=== PATIENT | male | born 1950 | race Caucasian/White ===

== ENCOUNTER 2019-11-11 19:16 | Inpatient (IN) | payer MEDICARE, OTHER ==
[2019-11-11 21:38] VITALS: BMI 27.9
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
[2019-11-11] MEDS ORDERED: Nitroglycerin 0.4 MG TAB (25 Tab Bottle) PO PRN (23:56)
[2019-11-12 01:06] LABS: Troponin I Less than 0.010 ng/mL (< 0.028)
--- NOTE | 2019-11-12 04:06 | PDOC.EVN ---
Event Note - Event Note Event Note: Was notified by nursing that patient had a run of V. tach. Patient was asymptomatic and sleeping during the event. Vital signs stable. Due to patient 's history of sudden cardiac arrest with FL in the past and symptoms feeling the same as they were prior to that event, stress test has been canceled until evaluated by cardiology.
[2019-11-12 04:56] LABS: Cardiac Risk 2.6 (Less than 4.5)
[2019-11-12 04:59] LABS: Troponin I Less than 0.010 ng/mL (< 0.028)
[2019-11-12] MEDS: Famotidine 20 MG TAB PO SCH ×2 (08:41→21:07)
[2019-11-12] MEDS: Rosuvastatin 20 MG TAB PO SCH (08:41)
[2019-11-12] MEDS: Aspirin 81 mg Enteric Coated Tablet PO SCH (08:41)
[2019-11-12] MEDS: Clopidogrel Bisulfate 75 MG TAB PO SCH (08:41)
[2019-11-12] MEDS: Carvedilol 6.25 MG TAB PO SCH ×2 (08:42→21:12)
[2019-11-12 12:30] LABS: SARS-CoV-2 MS2 Positive; SARS-CoV-2 N Gene Negative; SARS-CoV-2 S Gene Negative; SARS-CoV-2 by NAA Not Detected (NotDetected); SARS-CoV-2 orf1ab Negative
[2019-11-12] MEDS ORDERED: Communication Order-Pharmacy FS SCH (13:30)
[2019-11-12] MEDS ORDERED: Sodium Chloride 0.9% 1,000 ML IV SCH (13:30)
--- NOTE | 2019-11-12 13:41 | PDOC.HOSPP ---
- Subjective Encounter Date: 11/12/19 Encounter Time: 10:30 Subjective: pt up in bed no complains - Objective Vital Signs & Weight: Vital Signs (12 hours) Temp Pulse Resp BP Pulse Ox 11/12/19 11:03 98.1 F 57 L 17 128/71 95 11/12/19 07:41 98.6 F 58 L 18 133/63 93 L 11/12/19 04:02 97.9 F 54 L 14 124/60 95 Weight Admit Weight 200 lb 6.4 oz Weight 200 lb 6.4 oz I&O: 11/11/19 11/12/19 11/13/19 06:59 06:59 06:59 Intake Total 120 Balance 120 Hospitalist ROS - Review of Systems Cardiovascular: denies: chest pain, palpitations, orthopnea, paroxysmal noc. dyspnea, edema, light headedness, other Gastrointestinal: denies: nausea, vomiting, abdominal pain, diarrhea, constipation, melena, hematochezia, other Genitourinary: denies: dysuria, frequency, incontinence, hematuria, retention, other - Medication Medications: Active Medications Generic Name Dose Route Start Last Admin Trade Name Freq PRN Reason Stop Dose Admin Aspirin 81 mg 11/12/19 09:00 11/12/19 08:41 Ecotrin PO 81 mg DAILY [facility] Administration Carvedilol 6.25 mg 11/12/19 09:00 11/12/19 08:42 Coreg PO Not Given BID [facility] Clopidogrel Bisulfate 75 mg 11/12/19 09:00 11/12/19 08:41 Plavix PO 75 mg DAILY [facility] Administration Famotidine 40 mg 11/12/19 09:00 11/12/19 08:41 Pepcid PO 40 mg BID [facility] Administration Rosuvastatin Calcium 40 mg 11/12/19 09:00 11/12/19 08:41 Crestor PO 40 mg DAILY [facility] Administration - Exam Neck: negative: supple, symmetric, no JVD, no thyromegaly, no lymphadenopathy, no carotid bruit, JVD Heart: negative: RRR, no murmur, no gallops, no rubs, normal peripheral pulses, irregular, diminshed peripheral pulses, murmur present, II/IV, III/IV Respiratory: negative: CTAB, no wheezes, no rales, no ronchi, normal chest expansion, no tachypnea, normal percussion, rales, rhonchi, tachypneic, wheezes Hosp A/P (1) V tach Code(s): I47.2 - VENTRICULAR TACHYCARDIA Status: Acute (2) Chest pain Code(s): R07.9 - CHEST PAIN, UNSPECIFIED Status: Acute (3) HTN (hypertension) Code(s): I10 - ESSENTIAL (PRIMARY) HYPERTENSION Status: Acute (4) Hyperlipidemia Code(s): E78.5 - HYPERLIPIDEMIA, UNSPECIFIED Status: Acute (5) CAD (coronary artery disease) Code(s): I25.10 - ATHSCL HEART DISEASE OF [place] CORONARY ARTERY W/O ANG PCTRS Status: Acute (6) CKD (chronic kidney disease) stage 3, GFR 30-59 ml/min Code(s): N18.3 - CHRONIC KIDNEY DISEASE, STAGE 3 (MODERATE) Status: Acute - Plan pt had 25 beats of vtach last night. cardilogy consulted. pt was asymptomatic. He has not had a cath since 2016. 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 pt on fluids since he will be getting a cath.
[2019-11-12] MEDS: Sodium Chloride 0.9% 1,000 ML IV SCH (15:15)
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
[2019-11-12] MEDS ORDERED: Enoxaparin Sodium 80 MG/0.8 ML SYRINGE SC SCH (18:45)
[2019-11-13] MEDS: Sodium Chloride 0.9% 1,000 ML IV SCH ×2 (03:23→18:18)
[2019-11-13 05:10] LABS: Anion Gap 11 mmol/L (10-20); BUN (Urea Nitrogen) 15 mg/dL (8.4-25.7); Calc. Creatinine Clearance 61 mL/min (70-130); Calcium 8.2 mg/dL (7.8-10.44); Carbon Dioxide 23 mmol/L (23-31); Chloride 106 mmol/L (98-107); Estimated GFR-MDRD 47; Glucose 81 mg/dL (80-115); Potassium 3.7 mmol/L (3.5-5.1); Sodium 136 mmol/L (136-145)
[2019-11-13] MEDS: Famotidine 20 MG TAB PO SCH ×2 (05:57→20:32)
[2019-11-13] MEDS: Clopidogrel Bisulfate 75 MG TAB PO SCH (05:57)
[2019-11-13] MEDS: Rosuvastatin 20 MG TAB PO SCH (05:57)
[2019-11-13] MEDS: Carvedilol 6.25 MG TAB PO SCH ×2 (05:58→20:32)
[2019-11-13] MEDS: Aspirin 81 mg Enteric Coated Tablet PO SCH (05:58)
[2019-11-13] MEDS ORDERED: Diazepam 5 MG TAB PO SCH (06:00)
[2019-11-13] MEDS ORDERED: Sodium Chloride 0.9% 1,000 ML IV SCH (06:00)
[2019-11-13] MEDS ORDERED: Midazolam HCl 2 mg/2 ml Vial ONE (07:58)
[2019-11-13] MEDS ORDERED: Fentanyl 100 MCG/2 ML VIAL ONE ×2 (07:59→09:35)
[2019-11-13] MEDS ORDERED: Heparin 10,000 UNITS/ 10 ML VIAL ONE ×2 (08:28→08:35)
[2019-11-13] MEDS ORDERED: Nitroglycerin 100MG/250ML BOT 250 ML ONE (08:36)
[2019-11-13] MEDS ORDERED: Clopidogrel Bisulfate 300 MG TAB ONE (09:54)
[2019-11-13] MEDS ORDERED: Iopamidol 370 76% 50 ML VIAL FS ONE (10:56)
[2019-11-13] MEDS ORDERED: Iopamidol 370 76% 100 ML VIAL ONE (10:56)
--- NOTE | 2019-11-13 18:55 | PDOC.HOSPP ---
- Subjective Encounter Date: 11/13/19 Encounter Time: 18:00 Subjective: pt up in bed no complains - Objective Vital Signs & Weight: Vital Signs (12 hours) Temp Pulse Resp BP BP Pulse Ox 11/13/19 16:20 97.7 F 56 L 16 131/63 97 11/13/19 14:00 62 18 134/96 H 98 11/13/19 07:24 97.9 F 65 20 127/65 95 Weight Admit Weight 200 lb 6.4 oz Weight 200 lb 6.4 oz I&O: 11/12/19 11/13/19 11/14/19 06:59 06:59 06:59 Intake Total 120 1686 2213 Output Total 325 450 Balance 120 1361 1763 Result Diagrams: 11/13/19 04:22 Hospitalist ROS - Review of Systems Cardiovascular: denies: chest pain, palpitations, orthopnea, paroxysmal noc. dyspnea, edema, light headedness, other Gastrointestinal: denies: nausea, vomiting, abdominal pain, diarrhea, constipation, melena, hematochezia, other Genitourinary: denies: dysuria, frequency, incontinence, hematuria, retention, other - Medication Medications: Active Medications Generic Name Dose Route Start Last Admin Trade Name Freq PRN Reason Stop Dose Admin Aspirin 81 mg 11/12/19 09:00 11/13/19 05:58 Ecotrin PO 81 mg DAILY [facility] Administration Carvedilol 6.25 mg 11/12/19 09:00 11/13/19 05:58 Coreg PO Not Given BID [facility] Clopidogrel Bisulfate 75 mg 11/12/19 09:00 11/13/19 05:57 Plavix PO 75 mg DAILY [facility] Administration Diazepam 5 mg 11/13/19 06:00 11/13/19 07:32 Valium PO 11/13/19 23:59 5 mg WILLCALL [facility] Administration Famotidine 40 mg 11/12/19 09:00 11/13/19 05:57 Pepcid PO 40 mg BID [facility] Administration Sodium Chloride 1,000 mls @ 80 mls/hr 11/12/19 15:00 11/13/19 18:18 Normal Saline 0.9% IV 11/13/19 21:00 Not Given .[id number] [facility] Rosuvastatin Calcium 40 mg 11/12/19 09:00 11/13/19 05:57 Crestor PO 40 mg DAILY [facility] Administration Sodium Chloride 10 ml 11/12/19 21:00 11/13/19 05:58 Flush - Normal Saline IVF Not Given Q12HR [facility] - Exam Heart: negative: RRR, no murmur, no gallops, no rubs, normal peripheral pulses, irregular, diminshed peripheral pulses, murmur present, II/IV, III/IV Respiratory: negative: CTAB, no wheezes, no rales, no ronchi, normal chest expansion, no tachypnea, normal percussion, rales, rhonchi, tachypneic, wheezes Gastrointestinal: negative: soft, non-tender, non-distended, normal bowel sounds , no palpable masses, no hepatomegaly, no splenomegaly, no bruit, no guarding, no rigidity, tender to palpation, distended, diminished bowl sounds, voluntary guarding Extremities: negative: no cyanosis, no clubbing, no edema, 1+ LE edema, 2+ LE edema, clubbing Extremities - other findings: right groin dressing intact, pedal pulse present to right and left foot. Hosp A/P (1) V tach Code(s): I47.2 - VENTRICULAR TACHYCARDIA Status: Acute (2) Chest pain Code(s): R07.9 - CHEST PAIN, UNSPECIFIED Status: Acute (3) HTN (hypertension) Code(s): I10 - ESSENTIAL (PRIMARY) HYPERTENSION Status: Acute (4) Hyperlipidemia Code(s): E78.5 - HYPERLIPIDEMIA, UNSPECIFIED Status: Acute (5) CAD (coronary artery disease) Code(s): I25.10 - ATHSCL HEART DISEASE OF [place] CORONARY ARTERY W/O ANG PCTRS Status: Acute (6) CKD (chronic kidney disease) stage 3, GFR 30-59 ml/min Code(s): N18.3 - CHRONIC KIDNEY DISEASE, STAGE 3 (MODERATE) Status: Acute - Plan pt had 25 beats of vtach last night. cardilogy consulted. pt was asymptomatic. He has not had a cath since 2016. 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 pt on fluids since he will be getting a cath. 11/12 pt s/p cath had angioplasty. will continue to monitor overnight if stable will discharge in am.
--- NOTE | 2019-11-13 20:31 | CCLSPC ---
PROCEDURES: 1. Left heart catheterization. 2. Percutaneous transluminal coronary angioplasty of the right coronary artery. 3. Attempted stent of the right coronary artery, stent unable to cross lesion due to vessel tortuosity. INDICATIONS: Chest pain at rest, coronary artery disease. COMPLICATIONS: None. PROCEDURE IN DETAIL: The patient was brought to the cardiac catheterization lab in a fasting state. He was sedated, prepped and draped in usual fashion. The right groin was anesthetized with 1% Xylocaine. Subsequently, a 5-Turkmen introducer sheath was placed on the first attempt under ultrasound guidance. Coronary angiography was done with a Medardo left 4 catheter and the right coronary artery was visualized with a WRP catheter. Films are reviewed, revealed the following. 1. Left main normal. 2. LAD, 30% plaque after the first diagonal branch. 3. Diagonal branch 30%. 4. Circumflex, stent widely patent with good flow. However, distally in the mid circumflex, there was 100% occlusion, which was an old occlusion with some collateral flow, some aneurysmal dilatation in part of the vessel. 5. Right coronary artery is a tortuous vessel with a 90-degree angle bend in the proximal segment. There is a stent with a 90% in-stent restenosis. More distally, there is a 40% lesion. The vessel diameter distally is large. The patient was given 12,000 of heparin intravenously and the 5-Turkmen sheath was exchanged for the 6-Turkmen sheath. It should be noted exchange length catheters were used for most of the exchanges as there was some coiling of the wire in the aorta suggestive of an abdominal aneurysm, which will be evaluated at a later time. We placed an FR 3.5 guide catheter, which cannulated well. The lesion was crossed easily with a Luge wire. The area was pre-dilated with a 2.5 x 20 balloon. There was a long diseased segment, but this was a critical area and this was balloon dilated. Subsequently, that was withdrawn and a 4.0 x 28 mm stent was placed, but would not traverse the initial bend. Multiple maneuvers were tried to get the stent to cross, initially started with a Luge wire which was an intermediate wire, used an extra-support wire as a katia wire that was not successful in getting the stent to cross. I took out the Luge wire and tried to cross with the katia wire, the extra-support wire that was unsuccessful. The back up to the stent was not adequate as well. Ultimately, I decided to remove the wire and use an Amplatz left 1 guide catheter, which cannulated extremely well and gave great back up. I went back in with the extra-support wire, unable to cross, also tried with the Luge wire, unable to cross. It appeared that the wires were straightening out the proximal segment and the vessel was "garden hosing," which was likely pinching the stent. Therefore, it just would not cross. Needed some support to get around the corner, however. Prolonged efforts were made. Ultimately, I went back to 3 mm balloon, which was the size of the adjacent vessel next to the in-stent restenosis and balloon dilated with that and the 90% lesion was reduced to approximately 35% lesion. The patient had good flow and was asymptomatic. Further attempts were not made to try to cross with the stent as this did not look to be feasible at this time. I do not think a shorter stent would have been of much help as even the proximal segment of the stent was really not going very far, even around the corner at all. CONCLUSION: 1. Two-vessel coronary artery disease as outlined above. 2. Left ventricular ejection fraction of 50% with apical hypokinesis. 3. Severe in-stent restenosis, successful balloon dilatation, but unsuccessful stent implantation. We will treat medically. If the patient has restenosis, may need bypass surgery. Job ID: [id number]
[2019-11-14 05:45] LABS: #Eosinphils 0.1 thou/uL (0.0-0.7); #Lymphocytes 0.8 thou/uL (1.20-3.40); #Monocytes 0.3 thou/uL (0.11-0.59); %Basophils 0.5 % (0.0-1.0); %Eosinophils 2.8 % (0.0-10.0); %Lymphocytes 14.5 % (21.0-51.0); %Monocytes 6.2 % (0.0-10.0); Hemoglobin 12.8 g/dL (14.0-18.0); Mean Corpuscular HGB CONC 33.4 g/dL (32.0-36.0); Mean Corpuscular Hemoglobin 32.1 pg (27.0-31.0); Mean Platelet Volume 8.1 fL (7.4-10.4); Platelet Count 155 thou/uL (130-400); RBC Distribution Width 12.4 % (11.5-14.5); Red Blood Cell (RBC) Count 3.99 mill/uL (4.70-6.10); White Blood Cell (WBC) Count 5.2 thou/uL (4.8-10.8)
[2019-11-14 06:06] LABS: ALT (SGPT) 15 U/L (8-55); AST (SGOT) 17 U/L (5-34); Albumin 3.3 g/dL (3.4-4.8); Alkaline Phosphatase 98 U/L (40-110); Anion Gap 11 mmol/L (10-20); BUN (Urea Nitrogen) 12 mg/dL (8.4-25.7); Bilirubin, Total 0.8 mg/dL (0.2-1.2); Calc. Creatinine Clearance 74 mL/min (70-130); Calcium 8.2 mg/dL (7.8-10.44); Carbon Dioxide 21 mmol/L (23-31); Chloride 107 mmol/L (98-107); Estimated GFR-MDRD 58; Globulin 2.4 g/dL (2.4-3.5); Glucose 82 mg/dL (80-115); Protein, Total 5.7 g/dL (5.8-8.1); Sodium 135 mmol/L (136-145)
[2019-11-14] MEDS: Rosuvastatin 20 MG TAB PO SCH (07:50)
[2019-11-14] MEDS: Famotidine 20 MG TAB PO SCH (07:50)
[2019-11-14] MEDS: Aspirin 81 mg Enteric Coated Tablet PO SCH (07:51)
[2019-11-14] MEDS: Clopidogrel Bisulfate 75 MG TAB PO SCH (07:51)
[2019-11-14] MEDS: Carvedilol 6.25 MG TAB PO SCH (07:52)
[2019-11-14 07:56] VITALS: BP 126/76; TEMP 97.6
--- NOTE | 2019-11-14 10:29 | PRG ---
DATE OF SERVICE: 11/14/2019 SUBJECTIVE: Mr. Major is doing fine today. No anginal chest pain. He had 1, which sound like a palpitation last night that lasted for about 1 second. No anginal pain. OBJECTIVE: VITAL SIGNS: Blood pressure is 126/76 and pulse 56, it is sinus. LUNGS: Clear. CARDIAC: Normal S1 and normal S2. ABDOMEN: Soft and nontender. EXTREMITIES: There is no edema. PERTINENT LABORATORY DATA: Creatinine is down to 1.25. His kidney functions improved. His cholesterol LDL was here was 59. His creatinine was as high as 1.65 initially down to 1.25 one day after the heart catheterization. CURRENT MEDICATIONS: 1. Aspirin 81 mg a day. 2. Plavix 75 mg a day. 3. Carvedilol 6.25 mg twice a day. 4. Rosuvastatin 40 mg a day. ASSESSMENT AND PLAN: As outlined in the chart yesterday, we can only balloon dilate the in-stent restenosis and could not get a stent to traverse the initial bend in the artery. I explained to him that he could have restenosis. The only other option to really try to cross this may be with a although I am not certain the catheter would cross either. Other option be bypass surgery. The patient understands that he has nitroglycerin to take if needed. He will be released home. We will see us in a month. 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 He will come back to the hospital if he has intractable chest pain. Job ID: [id number]
--- NOTE | 2019-11-15 02:24 | DIS ---
DATE OF ADMISSION: 11/11/2019 DATE OF DISCHARGE: 11/14/2019 DISCHARGE DIAGNOSES: 1. Chest pain. 2. Ventricular tachycardia. 3. Hypertension. HOSPITAL COURSE: The patient is a 68-year-old male, who initially presented to the hospital for chest pain. He was noted to have 25 beats of ventricular tachycardia. He was seen by Cardiology, underwent a cardiac cath, which indicated an EF of 50% with apical hypokinesis. At this time, he had an angioplasty of the RCA stent. Pre-PCI was 90% block. After that, post 35. The patient was watched overnight. He had no issues. He was discharged the following day. He is going to follow up with Cardiology as outpatient. MEDICATIONS: His home medications will be; 1. Aspirin 81 mg daily. 2. Rosuvastatin 40 mg daily. 3. Clopidogrel 75 mg daily. 4. Pepcid 20 mg daily. PHYSICAL EXAMINATION: VITAL SIGNS: On discharge; temperature 97.6, heart rate 56, respiratory rate 16, O2 saturations 97% on room air, and blood pressure 126/76. GENERAL: He is awake, alert, and oriented x3. Does not appear in distress. CV: S1 and S2 present. No murmurs, rubs, or gallops. He was asked to stop his carvedilol. Job ID: [id number]
--- NOTE | 2019-11-17 17:26 | EKG ---
Test Reason : Blood Pressure : / mmHG Vent. Rate : 050 BPM Atrial Rate : 050 BPM P-R Int : 202 ms QRS Dur : 092 ms QT Int : 494 ms P-R-T Axes : 029 -72 023 degrees QTc Int : 450 ms Sinus bradycardia Left anterior fascicular block Abnormal ECG No previous ECGs available Confirmed by RASHEL COFFMAN (2) on 11/17/2019 5:26:18 PM Referred By: CHAY Confirmed By:RASHEL COFFMAN
--- NOTE | 2019-11-17 17:29 | EKG ---
Test Reason : Blood Pressure : / mmHG Vent. Rate : 057 BPM Atrial Rate : 057 BPM P-R Int : 164 ms QRS Dur : 092 ms QT Int : 458 ms P-R-T Axes : 020 -65 020 degrees QTc Int : 445 ms Sinus bradycardia Left anterior fascicular block Possible Lateral infarct , age undetermined Abnormal ECG When compared with ECG of 13-NOV-2019 11:07, (Unconfirmed) No significant change was found Confirmed by RASHEL COFFMAN (2) on 11/17/2019 5:29:32 PM Referred By: CHAY Confirmed By:RASHEL COFFMAN
== END 2019-11-14 12:06 | disposition home or self-care (01) | DRG 251 ==
LOC: 2SW 19:21 → OBSVTOIN 19:21 → PREINTOOBSV 20:08
PROVIDERS: ADMIT Internal Medicine; ATTEND Internal Medicine
PROC: B2111ZZ Fluoroscopy of Multiple Coronary Arteries using Low Osmolar Contrast (ICD-10-PCS; 2019-11-11)
PROC: 02703ZZ Dilation of Coronary Artery, One Artery, Percutaneous Approach (ICD-10-PCS; principal; 2019-11-13)
PROC: 4A023N7 Measurement of Cardiac Sampling and Pressure, Left Heart, Percutaneous Approach (ICD-10-PCS; 2019-11-13)
DX: R07.9 Chest pain, unspecified (principal); T82.855A Stenosis of coronary artery stent, initial encounter; I47.2 Ventricular tachycardia; Z20.828 Contact with and (suspected) exposure to other viral communicable diseases; E78.5 Hyperlipidemia, unspecified; I25.10 Atherosclerotic heart disease of native coronary artery without angina pectoris; K21.9 Gastro-esophageal reflux disease without esophagitis; I12.9 Hypertensive chronic kidney disease with stage 1 through stage 4 chronic kidney disease, or unspecified chronic kidney disease; N18.3 Chronic kidney disease, stage 3 (moderate); F17.200 Nicotine dependence, unspecified, uncomplicated; Y83.1 Surgical operation with implant of artificial internal device as the cause of abnormal reaction of the patient, or of later complication, without mention of misadventure at the time of the procedure; I25.2 Old myocardial infarction; Z95.5 Presence of coronary angioplasty implant and graft; Z79.82 Long term (current) use of aspirin
CPT/HCPCS: 36415; 76942; 80048; 80053; 80061; 83735; 84443; 84484; 85025; 85347; 87635; 90471; 90732; 92920; 93005; 93010; 93306; 93458; 94760; 97139; 99152; C1874; G0009; G0378; J1644; J1650; J2250; J3010; Q9967; U0003

== ENCOUNTER 2019-11-22 01:24 | Observation (INO) | payer MEDICARE, OTHER ==
[2019-11-22 01:58] LABS: #Basophils 0.1 thou/uL (0.0-0.2); #Eosinphils 0.2 thou/uL (0.0-0.7); #Lymphocytes 1.4 thou/uL (1.20-3.40); #Monocytes 0.4 thou/uL (0.11-0.59); #Neutrophils 3.4 thou/uL (1.40-6.50); %Eosinophils 3.3 % (0.0-10.0); %Lymphocytes 26.4 % (21.0-51.0); %Monocytes 6.8 % (0.0-10.0); %Neutrophils 62.6 % (42.0-75.0); Hemoglobin 13.9 g/dL (14.0-18.0); Mean Corpuscular HGB CONC 34.4 g/dL (32.0-36.0); Mean Corpuscular Hemoglobin 32.6 pg (27.0-31.0); Mean Corpuscular Volume 94.7 fL (78.0-98.0); Mean Platelet Volume 8.2 fL (7.4-10.4); Platelet Count 202 thou/uL (130-400); RBC Distribution Width 12.1 % (11.5-14.5); Red Blood Cell (RBC) Count 4.26 mill/uL (4.70-6.10); White Blood Cell (WBC) Count 5.5 thou/uL (4.8-10.8)
[2019-11-22] MEDS ORDERED: Lorazepam 2 MG/ML VIAL ONE (02:07)
[2019-11-22 02:20] LABS: ALT (SGPT) 20 U/L (8-55); AST (SGOT) 20 U/L (5-34); Alkaline Phosphatase 115 U/L (40-110); Anion Gap 15 mmol/L (10-20); BUN (Urea Nitrogen) 9 mg/dL (8.4-25.7); Bilirubin, Total 0.6 mg/dL (0.2-1.2); Calc. Creatinine Clearance 0 mL/min (70-130); Calcium 9.5 mg/dL (7.8-10.44); Carbon Dioxide 23 mmol/L (23-31); Chloride 104 mmol/L (98-107); Estimated GFR-MDRD 42; Globulin 2.8 g/dL (2.4-3.5); Glucose 102 mg/dL (80-115); Potassium 3.8 mmol/L (3.5-5.1); Protein, Total 6.8 g/dL (5.8-8.1); Sodium 138 mmol/L (136-145)
[2019-11-22] MEDS ORDERED: Morphine 2 MG/ML VIAL SLOW IVP PRN (03:01)
--- NOTE | 2019-11-22 03:09 | PDOC.EVN ---
Event Note - Event Note Event Note: [id number] dictated
[2019-11-22 03:34] LABS: Troponin I Less than 0.010 ng/mL (< 0.028)
--- NOTE | 2019-11-22 03:46 | HP ---
CHIEF COMPLAINT: Chest pain. HISTORY OF PRESENT ILLNESS: Mr. Major is a 68-year-old male with past medical history of myocardial infarction, multiple, cardiac stents, hyperlipidemia, presented to the emergency room with chest pain that began 3 hours prior to arrival. He stated that the pain radiated to the back. He denies shortness of breath, nausea, diaphoresis, or pleuritic nature of his pain. The patient underwent heart catheterization approximately a week ago, at which time he was found to have restenosis of the stent in his right coronary artery. The patient reports compliance with his home medications including aspirin and Plavix. Initial workup in the emergency room including troponin and EKG, no acute finding. Given the patient's history, the patient is being admitted to the hospital for further management and to rule out acute coronary syndrome. PAST MEDICAL HISTORY: 1. Myocardial infarction. 2. Hyperlipidemia. PAST SURGICAL HISTORY: 1. Cardiac stents. 2. . FAMILY HISTORY: Reviewed and noncontributory. SOCIAL HISTORY: The patient drinks every day less than 5 drinks a day. The patient is a former cigarette smoker. Denies drug use. ALLERGIES: NAPROSYN. CURRENT MEDICATIONS: Include: 1. Aspirin. 2. Plavix. 3. Famotidine. 4. Rosuvastatin. REVIEW OF SYSTEMS: Review of 14 systems negative except what is mentioned in history of present illness. PHYSICAL EXAMINATION: GENERAL: The patient is awake and alert, in mild distress. VITAL SIGNS: Blood pressure 128/87, pulse is 68, respiratory rate 16, temperature 98.5, and oxygen saturation 100% on room air. HEAD AND NECK: Normocephalic and atraumatic. Neck is supple. No JVD. CHEST: Fair bilateral entry. HEART: S1 and S2. Regular. ABDOMEN: Soft, nontender. Bowel sounds present. NEUROLOGIC: Anxious, awake, alert, and oriented x3. PSYCHIATRIC: Anxious mood. EXTREMITIES: No clubbing or cyanosis. LABORATORY DATA: Creatinine 1.6. Troponin less than 0.01. ASSESSMENT: 1. Acute chest pain, rule out acute coronary syndrome. 2. History of myocardial infarction. 3. History of cardiac stents. 4. Hyperlipidemia. 5. Former cigarette smoker. PLAN: 1. Admit. 2. Tele monitoring. 3. Aspirin. 4. Serial troponins. 5. Consult the patient's adjunct phlebotomy instructor in a.m. for evaluation and further recommendations. 6. Reconcile home medications. 7. DVT prophylaxis appropriate. 8. Expected length of stay, 1 midnight if the patient is stable and further workup negative. Job ID: [id number]
[2019-11-22 04:23] VITALS: BMI 28.2
[2019-11-22 08:05] LABS: Troponin I 0.013 ng/mL (< 0.028)
--- NOTE | 2019-11-22 08:21 | RAD ---
PORTABLE CHEST 1 VIEW: DATE: 11/22/2019. TIME: 1:57 AM. HISTORY: Chest pain. COMPARISON: 11/11/2019. FINDINGS: The heart size is normal. The lungs are expanded without focal areas of consolidation, pneumothorace s, or pleural effusions. IMPRESSION: No radiographic evidence of acute cardiopulmonary process. POS: OFF
[2019-11-22] MEDS ORDERED: Aspirin 325 mg Enteric Coated Tablet PO SCH (09:00)
[2019-11-22] MEDS: Aspirin 81 mg Enteric Coated Tablet PO SCH (10:16)
[2019-11-22] MEDS: Rosuvastatin 20 MG TAB PO SCH (11:24)
[2019-11-22] MEDS: Famotidine 20 MG TAB PO SCH ×2 (11:24→20:56)
[2019-11-22] MEDS: Clopidogrel Bisulfate 75 MG TAB PO SCH (11:25)
[2019-11-22 12:39] LABS: SARS-CoV-2 MS2 Positive; SARS-CoV-2 N Gene Negative; SARS-CoV-2 S Gene Negative; SARS-CoV-2 by NAA Not Detected (NotDetected); SARS-CoV-2 orf1ab Negative
--- NOTE | 2019-11-22 13:08 | PDOC.CPN ---
- Subjective Date: 11/22/19 Time: 13:37 Interval history: The pt seen and examined. No overnight events. No cardiac complaints. Per the pt, he has not CP since he was tx to the floor. He complains of very mild soreness to Epigastric area - Objective Allergies/Adverse Reactions: Allergies Allergy/AdvReac Type Severity Reaction Status Date / Time naproxen Allergy Rash Verified 11/11/19 22:06 Visit Medications: Current Medications Aspirin (Ecotrin) 81 mg PO DAILY [facility] Last Admin: 11/22/19 10:16 Dose: Not Given Clopidogrel Bisulfate (Plavix) 75 mg PO DAILY [facility] Last Admin: 11/22/19 11:25 Dose: 75 mg Famotidine (Pepcid) 40 mg PO BID [facility] Last Admin: 11/22/19 11:24 Dose: 40 mg Morphine Sulfate (Morphine) 2 mg SLOW IVP Q4H PRN PRN Reason: Pain Rosuvastatin Calcium (Crestor) 40 mg PO DAILY [facility] Last Admin: 11/22/19 11:24 Dose: 40 mg Vital Signs & Weight: Vital Signs Temp Pulse Resp BP Pulse Ox 11/22/19 11:23 97.6 F 61 14 107/55 L 97 11/22/19 07:06 97.8 F 69 18 104/57 L 98 11/22/19 04:13 97.9 F 71 16 116/63 99 Weight 202 lb 8 oz - Physical Exam General: alert & oriented x3 HEENT: mucus membranes moist Neck: supple neck Cardiac: regular rate and rhythm, S1/S2 Lungs: decreased breath sounds Neuro: cranial nerve 2-12 intact Extremities: no edema - Labs Result Diagrams: 11/22/19 01:44 11/22/19 01:44 Troponin/CKMB Troponin I 0.013 ng/mL (< 0.028) 11/22/19 07:32 - Telemetry Sinus rhythms and dysrhythmias: sinus rhythm - Assessment/Plan Assessment/Plan: 1. CP in adult - The pt had pain at epigastric area which improved with Ativan; Trop negative x 3; ECG showed no ST changes. He did not take NTG at home prior to this admission because of hx of syncopal episode from hypotesion by NTG in past 2. CAD with s/p stent placement in RCA in 10/2019 - On ASA, Plavix, and Statin ; but no bblocker or LEONCIO/ARB due to mildly hypotension 3. HLD - on statin 4. Ex-smoker quit in 2017 - 5. ETOH abuse - 3 beers every night; recommend cut down ETOH consumption MAR reviewed * S/p LHC in 04/2019 with ACE in RCA; re-stenosis and tortuous vessel RCA; 30% stenosis in LAD post 1st diag, * Echo in 10/2019 with EF 50-55%, akinetic apex, mild LAE, mild MR Pt. seen and eval. by me. I agree with the A/P by the DAIRY TRUCK DRIVER. Chest clear. RRR. No edema. I reviewed his cath films and he does have significant CAD. If he has had further restenosis he may need a CABG. CIE's are negative. EKG: no acute changes.
[2019-11-23 07:40] VITALS: BP 119/66; TEMP 97.6
[2019-11-23] MEDS: Clopidogrel Bisulfate 75 MG TAB PO SCH (08:13)
[2019-11-23] MEDS: Famotidine 20 MG TAB PO SCH (08:13)
[2019-11-23] MEDS: Rosuvastatin 20 MG TAB PO SCH (08:13)
[2019-11-23] MEDS: Aspirin 81 mg Enteric Coated Tablet PO SCH (08:13)
--- NOTE | 2019-11-23 10:57 | PDOC.CPN ---
- Subjective Date: 11/23/19 Time: 10:58 Interval history: The pt seen and examined. No overnight events. No cardiac complaints. - Objective Allergies/Adverse Reactions: Allergies Allergy/AdvReac Type Severity Reaction Status Date / Time naproxen Allergy Rash Verified 11/11/19 22:06 Visit Medications: Current Medications Aspirin (Ecotrin) 81 mg PO DAILY [facility] Last Admin: 11/23/19 08:13 Dose: 81 mg Clopidogrel Bisulfate (Plavix) 75 mg PO DAILY [facility] Last Admin: 11/23/19 08:13 Dose: 75 mg Famotidine (Pepcid) 40 mg PO BID [facility] Last Admin: 11/23/19 08:13 Dose: 40 mg Morphine Sulfate (Morphine) 2 mg SLOW IVP Q4H PRN PRN Reason: Pain Rosuvastatin Calcium (Crestor) 40 mg PO DAILY [facility] Last Admin: 11/23/19 08:13 Dose: 40 mg Vital Signs & Weight: Vital Signs Temp Pulse Resp BP Pulse Ox 11/23/19 07:36 97.6 F 66 16 119/66 96 11/23/19 05:38 97.8 F 61 16 118/61 95 Weight 200 lb 3.2 oz - Physical Exam General: alert & oriented x3 HEENT: mucus membranes moist Neck: supple neck Cardiac: regular rate and rhythm, S1/S2 Lungs: clear to auscultation Neuro: cranial nerve 2-12 intact - Labs Result Diagrams: 11/22/19 01:44 11/22/19 01:44 Troponin/CKMB Troponin I 0.013 ng/mL (< 0.028) 11/22/19 07:32 - Telemetry Sinus rhythms and dysrhythmias: sinus rhythm - Assessment/Plan Assessment/Plan: 1. CP in adult - Asymptomatic for more than 24 hrs; The pt had pain at epigastric area which improved with Ativan; The pt would like to f/u with Dr Mejia's office [facility] instead of staying the hospital until Sunday to see Dr Mejia. 2. CAD with s/p stent placement in RCA in 10/2019 - On ASA, Plavix, and Statin ; but no bblocker or LEONCIO/ARB due to mildly hypotension 3. HLD - on statin 4. Ex-smoker quit in 2017 - recommend to cont smoking cessation 5. ETOH abuse - 3 beers every night; recommend cut down ETOH consumption MAR reviewed * S/p LHC in 04/2019 with ACE in RCA; re-stenosis and tortuous vessel RCA; 30% stenosis in LAD post 1st diag, * Echo in 10/2019 with EF 50-55%, akinetic apex, mild LAE, mild MR * From Cardiac standpoint, the pt is stable to d/c home. The pt must f/u with Dr Mejia's office [facility]. Pt. seen and eval. by me. I agree with th A/Yanet the PIE BOTTOMER. He is pain free and stable for d/c to f/u in the office next week. alexa
--- NOTE | 2019-11-24 04:34 | DIS ---
DATE OF ADMISSION: 11/22/2019 DATE OF DISCHARGE: 11/23/2019 PRIMARY CARE PROVIDER: Dr. Marty Jerez. DISCHARGE DIAGNOSIS: Chest pain. CONSULTATIONS DURING THIS HOSPITALIZATION: Cardiology, Dr. Jones. CONDITION OF PATIENT ON THE DAY OF DISCHARGE: Stable. I assessed Mr. Major on the day of discharge. He denies any chest pain or shortness of breath. Vital signs are stable. S1 and S2 are heard, regular. Lungs are clear to auscultation bilaterally. HOSPITAL COURSE: Mr. Major is a pleasant 68-year-old gentleman, who was admitted to [facility] on November 22, 2019, for chest pain. His chest pain resolved following admission. He was seen by Cardiology Service. He was recommended cardiac catheterization. This is because if he has had further restenosis, he may need a coronary artery bypass graft. Patient did not wish to have cardiac catheterization at this time. He wished to follow up with his dampener operator, Dr. Mejia, as outpatient. Cardiology Service recommended that patient be discharged home if he does not want to wait for a cardiac catheterization and he needs to follow up with his dampener operator next week. ACTIVITY: As tolerated. DIET: Heart-healthy. DISCHARGE DESTINATION: Home. Many thanks for allowing me to participate in your patient's care. Please feel free to contact me with any questions or concerns. FOLLOWUP: Post acute care followup: With his dampener operator and primary care providers in 3 days' time. Job ID: [id number]
== END 2019-11-23 11:43 | disposition home or self-care (01) ==
LOC: ERS 01:24 → 2SW 02:50
PROVIDERS: ADMIT Internal Medicine; ATTEND Internal Medicine
DX: R07.9 Chest pain, unspecified (principal); R10.13 Epigastric pain; I25.2 Old myocardial infarction; E78.5 Hyperlipidemia, unspecified; I25.10 Atherosclerotic heart disease of native coronary artery without angina pectoris; F10.10 Alcohol abuse, uncomplicated; T82.855A Stenosis of coronary artery stent, initial encounter; Z87.891 Personal history of nicotine dependence; Z79.02 Long term (current) use of antithrombotics/antiplatelets; Z79.82 Long term (current) use of aspirin; Z79.899 Other long term (current) drug therapy; Z88.6 Allergy status to analgesic agent; Z95.5 Presence of coronary angioplasty implant and graft; Z20.828 Contact with and (suspected) exposure to other viral communicable diseases
CPT/HCPCS: 71045; 80053; 84484 ×2; 85025; 93005; 96374; 99285; U0003; 36415; 87635; G0378; J2060

== ENCOUNTER 2023-02-07 12:56 | Outpatient (CLI) | payer MEDICARE | END 2023-02-07 12:57 | disposition home or self-care (01) | LOC: CT 12:56 | PROVIDERS: ATTEND Internal Medicine Cardiovascular Disease | DX: I71.40 Abdominal aortic aneurysm, without rupture, unspecified (principal); R91.1 Solitary pulmonary nodule; K80.20 Calculus of gallbladder without cholecystitis without obstruction | CPT/HCPCS: 74174; 82565 ==

== ENCOUNTER 2024-01-24 09:41 | Outpatient (CLI) | payer MEDICARE | END 2024-01-24 09:42 | disposition home or self-care (01) | LOC: BICULT 09:41 | PROVIDERS: ATTEND Internal Medicine Cardiovascular Disease | DX: I71.43 Infrarenal abdominal aortic aneurysm, without rupture (principal) | CPT/HCPCS: 76775 ==